=== PATIENT | female | born 1965 | race Caucasian/White ===

== ENCOUNTER → 2020-09-26 | Outpatient (CLI) | payer SELFPAY | LOC: M LABSMTC 14:34 | PROVIDERS: ATTEND Pediatrics | DX: Z20.828 Contact with and (suspected) exposure to other viral communicable diseases (principal) ==

== ENCOUNTER → 2020-10-09 | Outpatient (CLI) | payer SELFPAY | LOC: M LABSMTC 11:06 | PROVIDERS: ATTEND Pediatrics | DX: Z11.59 Encounter for screening for other viral diseases (principal) ==